=== PATIENT | male | born 1965 | race Caucasian/White ===

== ENCOUNTER 2019-11-29 10:25 | Emergency (ER) | payer OTHER ==
[~2019-11-29] VITALS: Ht 185.4 cm; Wt 183.2 kg
--- NOTE | 2019-11-29 10:44 | PHYS DOC ---
General Adult EDM: Chief Complaint: SHORTNESS OF BREATH HPI: HPI: The history was obtained from the patient. Patient is a 53-year-old male with PMH insulin-dependent diabetes, congestive heart failure, COPD, obesity, recent digit amputations of the right foot who presents with a chief complaint of gener alized weakness. Patient states he is felt progressively generally weak over the past 2 days. He states his called EMS because she was unable to care for him given his weakness and somnolence. Patient denies any chest pain. He does note some increase in exertional dyspnea from baseline. He has no orthopnea and bendopnea. However he states is baseline for him. He does use BiPAP nightly. He states he does use nasal cannula oxygen as needed when he is short of breath. He has a history of [place] with multiple stent placements. He notes that the toes from his right foot were amputated in mid August due to diabetic infections. He denies any recent antibiotics. States his follow-up appoint with his orthopedic surgeon is in 1 week. Denies any kidney issues. States that he does feel edematous. Denies any urinary symptoms. Denies belly pain or vomiting. Denies objective fevers or exposure to coronavirus that he knows of. Denies headache or back pain. No other complaints. Review of Systems: Review of Systems: Constitutional: Positive for generalized weakness and fatigue Eyes: Denies change in visual acuity HENT: Denies nasal congestion or sore throat Respiratory: Positive for shortness of breath Cardiovascular: Denies chest pain or edema GI: Denies abdominal pain, nausea, vomiting, bloody stools or diarrhea : Denies dysuria Musculoskeletal: Denies back pain or joint pain Integument: Denies rash Neurologic: Denies headache, focal weakness or sensory changes Endocrine: Denies polyuria or polydipsia Lymphatic: Denies swollen glands Psychiatric: Denies depression or anxiety Heart Score: Risk Factors: Risk Factors: DM, Current or recent (<one month) smoker, HTN, HLP, family history of CAD, obesity. Risk Scores: Score 0 - 3: 2.5% MACE over next 6 weeks - Discharge Home Score 4 - 6: 20.3% MACE over next 6 weeks - Admit for Clinical Observation Score 7 - 10: 72.7% MACE over next 6 weeks - Early Invasive Strategies Physical Exam: PE: Constitutional: Well developed, well nourished, no acute distress, non-toxic appearance. Obese. [] HENT: Normocephalic, atraumatic, bilateral external ears normal, oropharynx moist, no oral exudates, nose normal. [] Eyes: PERRLA, EOMI, conjunctiva normal, no discharge. [] Neck: Normal range of motion, no tenderness, supple, no stridor. [] Cardiovascular:Heart rate regular rhythm, no murmur [] Lungs & Thorax: Bilateral breath sounds clear to auscultation [] Abdomen: soft, no tenderness, no masses, no pulsatile masses. [] Skin: Warm, dry, no erythema, no rash. [] Back: No tenderness, no CVA tenderness. [] Extremities: Right foot with increased warmth and slight erythema to the amputation site. No palpable fluctuance or crepitus noted. Granulation tissue overlying keeping aspects of surgical site. Neurologic: Alert and oriented X 3, normal motor function, normal sensory function, no focal deficits noted. [] Psychologic: Affect normal, judgement normal, mood normal. [] Current Patient Data: Labs: Laboratory Tests Test 11/29/19 10:35 11/29/19 11:35 11/29/19 11:43 11/29/19 12:23 White Blood Count 16.6 x10^3/uL Red Blood Count 3.07 x10^6/uL Hemoglobin 7.5 g/dL Hematocrit 24.6 % Mean Corpuscular Volume 80 fL Mean Corpuscular Hemoglobin 24 pg Mean Corpuscular Hemoglobin Concent 31 g/dL Red Cell Distribution Width 22.1 % Platelet Count 112 x10^3/uL Neutrophils (%) (Auto) 86 % Lymphocytes (%) (Auto) 2 % Monocytes (%) (Auto) 10 % Eosinophils (%) (Auto) 1 % Basophils (%) (Auto) 1 % Neutrophils # (Auto) 14.3 x10^3uL Lymphocytes # (Auto) 0.4 x10^3/uL Monocytes # (Auto) 1.6 x10^3/uL Eosinophils # (Auto) 0.1 x10^3/uL Basophils # (Auto) 0.2 x10^3/uL Segmented Neutrophils % 82 % Band Neutrophils % 6 % Lymphocytes % 4 % Monocytes % 6 % Basophils % 2 % Toxic Granulation Present Toxic Vacuolation Present Platelet Estimate Decreased Large Platelets Occ Giant Platelets Present Hypochromasia Slight Anisocytosis Mod Microcytosis Slight Tear Drop Cells Occ Prothrombin Time 12.9 SEC Prothromb Time International Ratio 1.3 Activated Partial Thromboplast Time 35 SEC Sodium Level 134 mmol/L Potassium Level 4.6 mmol/L Chloride Level 95 mmol/L Carbon Dioxide Level 30 mmol/L Anion Gap 9 Blood Urea Nitrogen 106 mg/dL Creatinine 3.1 mg/dL Estimated GFR (Cockcroft-Gault) 21.0 BUN/Creatinine Ratio 34 Glucose Level 157 mg/dL Calcium Level 8.5 mg/dL Magnesium Level 3.1 mg/dL Total Bilirubin 0.7 mg/dL Aspartate Amino Transf (AST/SGOT) 16 U/L Alanine Aminotransferase (ALT/SGPT) 13 U/L Alkaline Phosphatase 79 U/L Troponin I Quantitative < 0.017 ng/mL YD-Mxl-T-Type Natriuretic Peptide 6253 pg/mL Total Protein 7.8 g/dL Albumin 2.7 g/dL Albumin/Globulin Ratio 0.5 Blood Gas pH 7.22 Blood Gas PCO2 74 mmHg Blood Gas PO2 310 mmHg Blood Gas HCO3 30 mmol/L Arterial Bld O2 Saturation (Calc) 100 % FiO2 70 % Lactic Acid Level 5.8 mmol/L Urine Collection Type Unknown Urine Color Yellow Urine Clarity Hazy Urine pH 5.0 Urine Specific [place] 1.015 Urine Protein 30 mg/dl Urine Glucose (UA) Neg mg/dL Urine Ketones (Stick) Neg mg/dL Urine Blood Small Urine Nitrite Neg Urine Bilirubin Neg Urine Urobilinogen Dipstick 0.2 mg/dL Urine Leukocyte Esterase Neg Urine RBC 6-10 /HPF Urine WBC 5-10 /HPF Urine Squamous Epithelial Cells Few /LPF Urine Amorphous Sediment Present /HPF Urine Bacteria Few /HPF Urine Hyaline Casts Occ /HPF Urine Granular Casts Few /HPF Urine Mucus Slight /LPF Current Medications Medications (Trade) Dose Ordered Sig/Alvaro Route PRN Reason Start Time Stop Time Status Last Admin Dose Admin Iohexol (Omnipaque 300 Mg/ml) 75 ml 1X ONCE IV 11/29/19 11:15 11/29/19 11:20 DC Propofol 100 ml @ As Directed STK-MED ONCE IV 11/29/19 11:38 11/29/19 11:38 DC Calcium Gluconate (Calcium Gluconate) 1,000 mg STK-MED ONCE .ROUTE 11/29/19 11:38 9/7/20 11:39 DC Fentanyl Citrate (Fentanyl 2ml Vial) 50 mcg PRN Q5MIN PRN IV pain 11/29/19 11:45 Propofol 100 ml @ 0 mls/hr CONT PRN IV sedation 11/29/19 11:45 Piperacillin Sod/ Tazobactam Sod 4.5 gm/Sodium Chloride 50 ml @ 100 mls/hr 1X ONCE IV 11/29/19 11:45 11/29/19 12:14 DC Clindamycin Phosphate 50 ml @ 100 mls/hr 1X ONCE IV 11/29/19 11:45 11/29/19 12:14 DC Linezolid 300 ml @ 300 mls/hr Q12HR IV 11/29/19 21:00 Methylprednisolone Sodium Succinate (SOLU-Medrol 125MG VIAL) 125 mg STK-MED ONCE .ROUTE 11/29/19 11:51 11/29/19 11:51 DC Albuterol/ Ipratropium (Duoneb) 3 ml STK-MED ONCE .ROUTE 11/29/19 11:52 11/29/19 11:52 DC Piperacillin Sod/ Tazobactam Sod (Zosyn) 4.5 gm STK-MED ONCE IV 11/29/19 11:56 11/29/19 11:56 DC Norepinephrine Bitartrate 8 mg/ Dextrose 258 ml @ 35.449 mls/ hr CONT PRN IV SEE I/O RECORD 11/29/19 12:00 Sodium Chloride 250 ml @ As Directed STK-MED ONCE .ROUTE 11/29/19 12:08 11/29/19 12:08 DC Norepinephrine Bitartrate (Levophed) 4 mg STK-MED ONCE IV 11/29/19 12:08 11/29/19 12:08 DC Sodium Chloride 50 ml @ As Directed STK-MED ONCE .ROUTE 11/29/19 12:59 11/29/19 12:59 DC Piperacillin Sod/ Tazobactam Sod (Zosyn) 4.5 gm STK-MED ONCE IV 11/29/19 12:59 11/29/19 12:59 DC EKG: EKG: EKG consistent with irregular rhythm. Ventricular rate 75 bpm. Significant artifact present limiting interpretation. No obvious ST segment elevation. [] Radiology/Procedures: Radiology/Procedures: Endotracheal Intubation Procedure Note [place] Protocol: 1. Pre-procedure verification: - Correct patient, correct site, correct procedure (correct patient verified against two identifiers: name and date of ) - H&P or H&P update complete and in medical record - Review of: Radiology images, scans, labs, pathology, biopsy reports with appropriate identifiers (if applicable) - Any required blood products, implants, devices, and/or special equipment for the procedure (if applicable) 2. Site Markings - when appropriate: N/A 3. Time Out: Time out performed (Includes validating the following: Correct patient, correct side/site marked and procedure to performed, correct position) Procedure Details: Procedure: Endotracheal intubation Indication: Acute Respiratory Failure secondary to hypoxia/hypercapnia and cardiac arrest Consent: Emergency consent implied Procedure: The patient was placed in the supine position and pre-oxygenated with 100% oxygen via BVM. Using a glide scope for blade, the cords were visualized; an 7.5 cuffed tube was able to be passed through the cords with direct visualization. Condensation was seen in the tube; bilateral breath-sounds were present, with none auscultated over the abdomen; good color change was present on EtCO2 detector. A CXR is ordered to cofirm placement. The ETT was secured at 24 cm at the lips. Mechanical ventilation is initiated at A/C, Vt 450ml, 100% FiO2, rate 18, PEEP 5. The patient tolerated procedure without immediate complication. Maykel Moran, Procedure Central Line: Central Venous Line Procedure Note [place] Protocol: 1. Pre-procedure verification: - Correct patient, correct site, correct procedure (correct patient verified against two identifiers: name and date of ) - H&P or H&P update complete and in medical record - Review of: Radiology images, scans, labs, pathology, biopsy reports with appropriate identifiers (if applicable) - Any required blood products, implants, devices, and/or special equipment for the procedure (if applicable) 2. Site Markings - when appropriate: N/A 3. Time Out: Time out performed (Includes validating the following: Correct patient, correct side/site marked and procedure to performed, correct position) Procedure Details: PROCEDURE: Central Line Placement INDICATION: Hypotension central medications CONSENT: Emergency consent implied Risks include: bleeding, infection, pneumothorax, pain, PROCEDURE: Time out performed. The patient's left internal jugular vein was initially visualized via ultrasound. The area was then cleansed with Chlorhexadine Gluconate x30 seconds and anesthetized with 0 ml 1% lidocaine. The area was then prepped and drapped in sterile fashion, including maximum barrier precautions. Under s terile technique and U/S guidence, the introducer needle was cannulated into the left internal jugular vein vein. The guidewire was then threaded into the vein. The dilator was then placed over the guidewire and into the vein. It was then removed and then the Arrow 7Fr triple-lumen catheter was placed over the guidewire and the guidewire removed via the distal port. Dark red, non- pulsatile blood was aspirated from each port; each port was then flushed with NSS. The CVC was then secured with a stat-lock. A blue biodisk was placed after the area was cleansed again. The site was then dressed with an Opsite. CXR ordered to confirm placement. EBL minimal Maykel Moran DO [address] [address] IMAGING REPORT Signed PATIENT: WAGNER CLIFFORD ACCOUNT: [id number] : 1965 LOCATION: ER AGE: 53 SEX: M EXAM STATUS: REG ER ORD. PHYSICIAN: MAYKEL MORAN DO REASON: confirm ET S/P CODE BLUE PROCEDURE: CHEST AP ONLY Chest AP portable 11/29/2019. Reason for exam: Confirm ETT. CODE BLUE. Comparison is made with a study of earlier in the day. There is some respiratory motion artifact, limiting evaluation some. An ETT is now seen. Its tip probably lies just above the medial clavicles, although this somewhat indistinct. There is now suggestion of left IJ central line. There is no obvious pneumothorax. Infiltrate is suggested at both lung bases. IMPRESSION: Somewhat limited study due to motion. Placement of ET and central line without apparent complication. Electronically signed by: Otto Arzola Jr., MD (11/29/2019 12:58 PM) [facility] DICTATED AND SIGNED BY: OTTO ARZOLA Jr, MD DATE: 11/29/19 1126 CC: PCP,NO; MAYKEL MORAN DO ~ [address] [address] IMAGING REPORT Signed PATIENT: WAGNER CLIFFORD ACCOUNT: [id number] : 1965 LOCATION: ER AGE: 53 SEX: M EXAM STATUS: REG ER ORD. PHYSICIAN: MAYKEL MORAN DO REASON: recent toe amputations. eval for osteo vs. absces to R foot PROCEDURE: CT LOWER EXTREMITY WO RIGHT CT right ankle and foot without contrast PQRS statement: CT scans at this facility use dose reduction including either automated exposure control, iterative reconstructions, and /or weight based radiation dosing via mA and kV modification when appropriate to reduce radiation dose to as low as reasonably achievable. HISTORY: Recent toe amputations, osteomyelitis versus abscess of the right foot. FINDINGS: Absence of contrast administration decreases sensitivity to detect small drainable fluid collection separate from phlegmonous edema. Amputation of the toes as well as the distal metatarsal heads at all 5 rays. There is extensive soft tissue edema and swelling throughout ankle and foot. There are foci of soft tissue emphysema overlying the amputation sites of the fourth and fifth toes and metatarsal heads and extending along the dorsal aspect of the fifth metatarsal shaft. No well-defined drainable fluid collection evident, there is indistinct hypodensity at osteotomy of the first metatarsal head resection either due to phlegmonous edema or due to a indistinct 1.5 cm fluid collection surrounded by edema. The lateral sesamoid of the first metatarsal remains. There is no aggressive periostitis or heterogeneous permeative lytic bone destruction to localize a potential site of osteomyelitis. Small presumed postsurgical bone density along the amputation sites of the first and second metatarsals noted. There appears be a hairline nondisplaced fracture of the second distal metatarsal leading up to the amputation site for length of 1 cm. Bone cystic change of the navicular. Osteoarthritic change of the ankle. Small os trigonum. IMPRESSION: 1. Recent amputations of all 5 toes and metatarsal heads. There is a nondisplaced acute traumatic fracture of the distal second metatarsal shaft leading up to the osteotomy of the amputation. 2. 1.5 cm indistinct hypodensity overlying the osteotomy of the first metatarsal head amputation site which could be focal phlegmonous edema versus fluid collection. 3. Extensive soft tissue edema and swelling throughout the ankle and foot may be cellulitis. There is soft tissue emphysema overlying the amputation sites of the fourth and fifth toes and metatarsal heads and along the dorsal surface of the fifth metatarsal shaft which is near the skin closure site of the amputation which likely represents air from surgical amputations, soft tissue gas from necrotizing fasciitis cannot be excluded. Electronically signed by: Tracee Garcia MD (11/29/2019 11:59 AM) [id number] DICTATED AND SIGNED BY: TRACEE GARCIA MD DATE: 11/29/19 [id number] CC: PCP,NO; MAYKEL MORAN DO ~ [] Course & Med Decision Making: Course & Med Decision Making Pertinent Labs and Imaging studies reviewed. (See chart for details) Patient is a 53-year-old male who arrives via EMS for fatigue and generalized weakness over the past few days. Upon arrival the patient had a GCS of 15. Alert and oriented x3. 99% on 2 L nasal cannula which the patient uses intermittently at home as needed. Normal blood pressure. Afebrile. Non- tachycardic. Initial EKG shows irregular rhythm consistent with atrial fibrillation. Clinically the patient showed no signs of distress upon arrival. On exam patient was noted to have erythematous and warm to touch right foot. He is status post partial amputation secondary to diabetic infectious complication in mid August 2019. Given my concern for underlying deep space infection CT imaging was ordered. While the patient was in CAT scan after obtaining imaging the patient became acutely unresponsive and lost pulses. He was emergently taken to our resuscitation room. He was intubated on first pass attempt without complication. 3 rounds of CPR were performed. Rhythm was PEA throughout. 1 mg of epinephrine was given. 50 mill equivalents of bicarbonate was given. Upon third pulse and rhythm check patient did have strong palpable pulse. He was satting 100% on ventilator. Patient was sedated with a low dose of propofol and fentanyl as needed. Patient's blood pressure at first was normotensive however he did slowly declined. He was given 2 L normal saline bolus. Given his persistent hypotension in the setting of cardiac arrest with a history of heart failure Levophed was initiated. Patient's blood pressure responded well to low-dose Levophed of 0.03 mcg/kg/min. Internal jugular central line was placed for central medication administration. See procedure note for further details. Given subcutaneous emphysema was noted on CT imaging and it is difficult to differentiate at this time if this is a normal postoperative finding versus acute infection. He was given Zosyn, clindamycin and linezolid given history of allergy to vancomycin. Patient does show f indings concerning for acute renal failure. Creatinine 3.1. BUN 106. Potassium normal. He does have an anemia of 7.5. Unclear what his baseline is however no signs of active blood loss reported at home or in the emergency department. Leukocytosis 16,000. Blood cultures obtained and pending. Initial lactate 5.5 which was obtained prior to cardiac arrest. Initial blood gas did show a hypercapnic respiratory failure. He was given DuoNeb breathing treatments and IV Solu-Medrol given his underlying obstructive lung process. COVID swab obtained and pending. At this time the cause of the patient's cardiac arrest is unclear. This could be multifactorial in nature including but not limited to sepsis from right foot infection versus hypoxia given his unde rlying heart failure and COPD. Patient's was updated. She did request transfer to [facility] given the entirety of the patient's care is delivered at [facility]. Specifically he sees Dr. Fuentes for cardiology. I did discuss the case with transfer center RN, Adam. Patient has been accepted to their critical care unit by . Given the patient shows minimal signs of responsiveness hypothermia protocol will be initiated at our facility per the recommendations of . Prior to transfer patient was hemodynamically stable. 96% SPO2 on 50% FiO2. Heart rate of 71. Remains afebrile. Blood pressure 150/100. Prior to transfer patient did show signs of spontaneous movement of all 4 extremities. Dragon Disclaimer: Dragon Disclaimer: This electronic medical record was generated, in whole or in part, using a voice recognition dictation system. Departure Departure: Impression: Primary Impression: Cardiac arrest Additional Impressions: Acute on chronic respiratory failure with hypoxia and hypercapnia Acute renal failure Qualified Codes: N17.9 - Acute kidney failure, unspecified Leukocytosis Qualified Codes: D72.829 - Elevated white blood cell count, unspecified Anemia Qualified Codes: D64.9 - Anemia, unspecified Cellulitis of right foot Disposition: SHT-TRM HOSP Condition: STABLE Referrals: PCP,NO (PCP) Justification of Admission: Justification of Admission: Justification of Admission Dx: Yes Comments: Cardiac arrest, acute on chronic hypoxic and hypercapnic respiratory failure, acute renal failure, right foot cellulitis, leukocytosis, anemia MAYKEL MORAN DO Nov 29, 2019 10:44
[2019-11-29 11:04] LABS: BASO # 0.2 x10^3/uL (0.0-0.2); BASO % 1 % (0-3); EOS # 0.1 x10^3/uL (0.0-0.7); EOS % 1 % (0-3); HEMATOCRIT 24.6 % (39.0-53.0); HEMOGLOBIN 7.5 g/dL (13.0-17.5); LYMPH # 0.4 x10^3/uL (1.0-4.8); LYMPH % 2 % (24-48); MEAN CORPUSCULAR HEMOGLOBIN 24 pg (25-35); MEAN CORPUSCULAR HGB CONC 31 g/dL (31-37); MEAN CORPUSCULAR VOLUME 80 fL (79-100); MONO # 1.6 x10^3/uL (0.0-1.1); MONO % 10 % (0-9); NEUT # 14.3 x10^3uL (1.8-7.7); NEUT % 86 % (31-73); PLATELET COUNT 112 x10^3/uL (140-400); RED BLOOD COUNT 3.07 x10^6/uL (4.30-5.70); RED CELL DISTRIBUTION WIDTH 22.1 % (11.5-14.5); WHITE BLOOD COUNT 16.6 x10^3/uL (4.0-11.0)
[2019-11-29 11:10] LABS: CALCIUM 8.5 mg/dL (8.5-10.1); CREATININE 3.1 mg/dL (0.7-1.3); POTASSIUM 4.6 mmol/L (3.5-5.1)
[2019-11-29] MEDS ORDERED: IOHEXOL 300 MG/ML 75 ML VIAL. IV ONE (11:15)
[2019-11-29 11:22] LABS: ALBUMIN 2.7 g/dL (3.4-5.0); ALBUMIN/GLOBULIN RATIO 0.5 (1.0-1.7); MAGNESIUM 3.1 mg/dL (1.8-2.4); TOTAL BILIRUBIN 0.7 mg/dL (0.2-1.0); TOTAL PROTEIN 7.8 g/dL (6.4-8.2)
[2019-11-29] MEDS ORDERED: PROPOFOL 100 ML IV ONE (11:38)
[2019-11-29] MEDS ORDERED: CALCIUM GLUCONATE 1,000 MG/10 ML VIAL ONE (11:38)
[2019-11-29] MEDS ORDERED: PROPOFOL 100 ML IV PRN (11:45)
[2019-11-29] MEDS ORDERED: PIPERACILLIN/TAZOBACTAM 4.5 GM in IV NORMAL SALINE 50ML 50 ML IV ONE (11:45)
[2019-11-29] MEDS ORDERED: CLINDAMYCIN 900MG PREMIX 50 ML IV ONE (11:45)
[2019-11-29] MEDS ORDERED: methylPREDNISolone SOD SUCC PF 125 MG/2 ML VIAL. ONE (11:51)
[2019-11-29] MEDS ORDERED: IPRATRPIUM/ALBUTEROL 0.5/2.5MG 3 ML NEBU. ONE (11:52)
[2019-11-29] MEDS ORDERED: PIPERACILLIN/TAZOBACTAM 4.5 GM VIAL IV ONE ×2 (11:56→12:59)
--- NOTE | 2019-11-29 11:57 | RAD ---
CHEST AP ONLY 11/29/2019 10:33 AM INDICATION: Congestive heart failure COMPARISON: Chest radiograph 10/02/2008 TECHNIQUE: Portable frontal view of the chest is provided. FINDINGS: The cardiomediastinal silhouette is enlarged, stable. There is a right chest wall infusion port catheter with the distal tip projecting over the mid superior vena cava. There is moderate pulmonary vascular congestion. Trace right pleural effusion. No pneumothorax. No suspicious osseous abnormality. IMPRESSION: Constellation of findings may be seen with mild congestive heart failure. Electronically signed by: Antonia Tomas MD (11/29/2019 11:54 AM) [id number]
[2019-11-29] MEDS ORDERED: NOREPINEPHRINE BITARTRATE 8 MG in IV DEXTROSE 5% 250 ML IV PRN (12:00)
--- NOTE | 2019-11-29 12:02 | RAD ---
CT right ankle and foot without contrast PQRS statement: CT scans at this facility use dose reduction including either automated exposure control, iterative reconstructions, and /or weight based radiation dosing via mA and kV modification when appropriate to reduce radiation dose to as low as reasonably achievable. HISTORY: Recent toe amputations, osteomyelitis versus abscess of the right foot. FINDINGS: Absence of contrast administration decreases sensitivity to detect small drainable fluid collection separate from phlegmonous edema. Amputation of the toes as well as the distal metatarsal heads at all 5 rays. There is extensive soft tissue edema and swelling throughout ankle and foot. There are foci of soft tissue emphysema overlying the amputation sites of the fourth and fifth toes and metatarsal heads and extending along the dorsal aspect of the fifth metatarsal shaft. No well-defined drainable fluid collection evident, there is indistinct hypodensity at osteotomy of the first metatarsal head resection either due to phlegmonous edema or due to a indistinct 1.5 cm fluid collection surrounded by edema. The lateral sesamoid of the first metatarsal remains. There is no aggressive periostitis or heterogeneous permeative lytic bone destruction to localize a potential site of osteomyelitis. Small presumed postsurgical bone density along the amputation sites of the first and second metatarsals noted. There appears be a hairline nondisplaced fracture of the second distal metatarsal leading up to the amputation site for length of 1 cm. Bone cystic change of the navicular. Osteoarthritic change of the ankle. Small os trigonum. IMPRESSION: 1. Recent amputations of all 5 toes and metatarsal heads. There is a nondisplaced acute traumatic fracture of the distal second metatarsal shaft leading up to the osteotomy of the amputation. 2. 1.5 cm indistinct hypodensity overlying the osteotomy of the first metatarsal head amputation site which could be focal phlegmonous edema versus fluid collection. 3. Extensive soft tissue edema and swelling throughout the ankle and foot may be cellulitis. There is soft tissue emphysema overlying the amputation sites of the fourth and fifth toes and metatarsal heads and along the dorsal surface of the fifth metatarsal shaft which is near the skin closure site of the amputation which likely represents air from surgical amputations, soft tissue gas from necrotizing fasciitis cannot be excluded. Electronically signed by: Kit Garcia MD (11/29/2019 11:59 AM) [id number]
[2019-11-29 12:05] LABS: % BANDS 6 % (0-9); % BASOS 2 % (0-3); % LYMPHS 4 % (24-48); % MONOS 6 % (0-10); % SEGS 82 % (35-66)
[2019-11-29 12:06] LABS: ANISOCYTOSIS MOD; PLT ESTIMATE DECREASED (ADEQUATE)
[2019-11-29 12:07] LABS: TEAR DROP CELLS OCC; TOXIC GRANULATION PRESENT; TOXIC VACUOLATION PRESENT
[2019-11-29 12:08] LABS: HYPOCHROMIA SLIGHT; MICROCYTOSIS SLIGHT
[2019-11-29] MEDS ORDERED: IV NORMAL SALINE 250ML 250 ML ONE (12:08)
[2019-11-29] MEDS ORDERED: NOREPINEPHRINE BITARTRATE 4 MG/4 ML VIAL. IV ONE (12:08)
[2019-11-29 12:29] LABS: BGAS PH 7.22 (7.35-7.46)
[2019-11-29 12:51] LABS: BACTERIA,URINE FEW /HPF (0-FEW); BILIRUBIN,URINE NEG (NEG); CLARITY,URINE HAZY; COLOR,URINE YELLOW; GLUCOSE,URINE NEG (NEG); NITRITE,URINE NEG (NEG); SQUAMOUS EPITHELIAL CELL,UR FEW /LPF; UROBILINOGEN,URINE 0.2 mg/dL (0.2 mg/dL)
[2019-11-29 12:52] LABS: AMORPHOUS SEDIMENT,UR PRESENT /HPF; GRANULAR CASTS,URINE FEW /HPF; HYALINE CASTS, URINE OCC /HPF
[2019-11-29] MEDS ORDERED: IV NORMAL SALINE 50ML 50 ML ONE (12:59)
--- NOTE | 2019-11-29 13:01 | RAD ---
Chest AP portable 11/29/2019. Reason for exam: Confirm ETT. CODE BLUE. Comparison is made with a study of earlier in the day. There is some respiratory motion artifact, limiting evaluation some. An ETT is now seen. Its tip probably lies just above the medial clavicles, although this somewhat indistinct. There is now suggestion of left IJ central line. There is no obvious pneumothorax. Infiltrate is suggested at both lung bases. IMPRESSION: Somewhat limited study due to motion. Placement of ET and central line without apparent complication. Electronically signed by: Amanuel Arzola Jr., MD (11/29/2019 12:58 PM) [facility]
--- NOTE | 2019-11-29 13:21 | RAD ---
KUB History: Reason: confirm NG / Spl. Instructions: / History: Technique: Supine views the abdomen. Comparison: None. Findings: Evaluation significantly degraded due to technique and patient body habitus. Enteric tube not definitively evaluated. Bowel gas pattern is obscured by artifact. Patchy bibasilar opacities better evaluated on chest x-ray. Impression: 1. Significantly degraded evaluation due to technique and patient body habitus. 2. Enteric tube not definitively identified. Recommend chest x-ray to evaluate for proximal positioning. Electronically signed by: Jaleel Powell DO (11/29/2019 1:18 PM) [facility]
[2019-11-29 14:00] VITALS: BP 161/66
[2019-11-29 14:08] LABS: BGAS PH 7.33 (7.35-7.46)
--- NOTE | 2019-11-29 14:35 | EKG ---
[address] [address] Test Date: 2019-11-29 Test Time: 10:43:10 Pat Name: WAGNER CLIFFORD Department: Room: Gender: M Instructor Nurse: : 1965 Requested By: CORINA HUNTER Order Number: [id number] Reading MD: Measurements Intervals [place] Rate: 79 P: CT: QRS: -54 QRSD: 96 T: 64 QT: 418 QTc: 480 Interpretive Statements ATRIAL FLUTTER R-S TRANSITION ZONE IN V LEADS DISPLACED TO THE LEFT LEFT ANTERIOR FASCICULAR BLOCK INCOMPLETE RIGHT BUNDLE BRANCH BLOCK QRS(T) CONTOUR ABNORMALITY CONSIDER INFERIOR MYOCARDIAL DAMAGE T ABNORMALITY IN HIGH LATERAL LEADS PROLONGED QT ABNORMAL ECG RI6.02 No previous ECG available for comparison
--- NOTE | 2019-11-29 14:39 | EKG ---
[address] [address] Test Date: 2019-11-29 Test Time: 12:19:44 Pat Name: WAGNER CLIFFORD Department: Room: Gender: M [employer] Member: JANET : 1965 Requested By: CORNIA HUNTER Order Number: [id number] Reading MD: Elmer Corea MD Measurements Intervals [place] Rate: 78 P: [place]: QRS: -76 QRSD: 96 T: 66 QT: 440 QTc: 506 Interpretive Statements atrial fibrillation lateral ischemia possible Electronically Signed On 11-30-2019 14:15:19 CDT by Elmer Corea MD
[2019-11-29] MEDS ORDERED: IV NORMAL SALINE 1,000ML 1,000 ML IV ONE ×2 (19:45)
--- NOTE | 2019-12-01 11:56 | NUR ---
IP: notified nurse Narcisa at [facility] of COVID result
--- NOTE | 2019-12-08 11:01 | NUR ---
IP: notified nurse Kehinde at of blood cx result, faxed result as well.
== END 2019-11-29 14:00 | disposition short-term general hospital (02) ==
LOC: ER 10:25
DX: I46.9 Cardiac arrest, cause unspecified (principal); J96.21 Acute and chronic respiratory failure with hypoxia; N17.9 Acute kidney failure, unspecified; D72.829 Elevated white blood cell count, unspecified; D64.9 Anemia, unspecified; L03.115 Cellulitis of right lower limb; J96.22 Acute and chronic respiratory failure with hypercapnia; E11.9 Type 2 diabetes mellitus without complications; I50.9 Heart failure, unspecified; J44.9 Chronic obstructive pulmonary disease, unspecified; E66.9 Obesity, unspecified; Z68.43 Body mass index [BMI] 50.0-59.9, adult; Z20.828 Contact with and (suspected) exposure to other viral communicable diseases
CPT/HCPCS: 31500; 36415; 36556; 36600; 71045; 73700; 74018; 80053; 81001; 82803; 83605; 83735; 83880; 84484; 85007; 85025; 85610; 85730; 87040; 87077; 87086; 87186; 87205; 92950; 93005; 94640; 96365; 96366; 96368; 99285; J2543; J3490; J7030; U0003; 94002